=== PATIENT | female | born 1975 | race African-American/Black ===

== ENCOUNTER 2022-06-12 11:22 | Emergency (ER) | payer MEDICAID, OTHER ==
[~2022-06-12] VITALS: Ht 167.6 cm; Wt 120.4 kg
[2022-06-12 12:13] VITALS: BP 155/82
== END 2022-06-12 13:54 | disposition left against medical advice (07) ==
LOC: ER 11:22
DX: H57.89 Other specified disorders of eye and adnexa (principal); Z53.21 Procedure and treatment not carried out due to patient leaving prior to being seen by health care provider

== ENCOUNTER 2023-02-12 08:53 | Outpatient (CLI) | payer MEDICAID ==
[~2023-02-12] VITALS: Ht 170.2 cm; Wt 122.5 kg
[2023-02-12 09:15] LABS: Basophils # (auto) 0.1 10 ^3/uL (0-0.2); Basophils % (auto) 0.8 % (0.0-2.0); Eosinophils # (auto) 0.1 10 ^3/uL (0-0.8); Eosinophils % (auto) 1.4 % (0.0-7.0); Hematocrit 44.1 % (36.0-46.0); Hemoglobin 13.9 g/dL (12.2-16.2); Lymphocytes # (auto) 2.3 10 ^3/uL (0.4-5.4); Lymphocytes % (auto) 22.6 % (10.0-50.0); Mean Corpuscular Hemoglobin 22.6 pg (28.0-32.0); Mean Corpuscular Hgb Conc. 31.4 g/dL (32.0-36.0); Monocytes # (auto) 0.7 10 ^3/uL (0-1.3); Monocytes % (auto) 6.7 % (0.0-12.0); Neutrophils # (auto) 7.1 10 ^3/uL (1.6-8.6); Neutrophils % (auto) 68.5 % (37.0-80.0); Nucleated Red Blood Cells % 0.1 %; Red Blood Cells 6.13 10^6/uL (4.0-5.20); Red Cell Distribution Width 19.9 % (11.8-14.3); White Blood Cell 10.4 10^3/uL (4.4-10.8)
[2023-02-12 09:22] LABS: Urine Bacteria NONE SEEN /hpf (None Seen); Urine Blood 3+ /uL (Negative); Urine Mucus FEW (None Seen); Urine WBC 513 /hpf (0 - 5); Urine WBC Clumps PRESENT /hpf (None Seen)
[2023-02-12 09:26] LABS: Urine Specific Gravity 1.036 (1.001-1.035)
[2023-02-12 09:38] LABS: INR 0.96 (0.9-1.15); Partial Thromboplastin Time 29.1 sec (24.6-33.4)
[2023-02-12 09:47] LABS: Potassium 4.1 mmol/L (3.5-5.1)
[2023-02-12 09:56] LABS: Albumin 3.4 g/dL (3.4-5.0); BUN/Creatinine Ratio 18.2 (10.0-20.0); Bilirubin, Total 0.4 mg/dL (0.2-1.0); Calcium 9.3 mg/dL (8.5-10.1); Total Protein 7.7 g/dL (6.4-8.2)
[2023-02-12] MEDS ORDERED: PERCOT PO (11:26)
[2023-02-12] MEDS ORDERED: LISI20TA56 PO (11:26)
[2023-02-12] MEDS ORDERED: LEVE500T40 PO (11:26)
[2023-02-12] MEDS ORDERED: ALBUAER3 IN (11:27)
[2023-02-12] MEDS ORDERED: ATO40T PO (11:27)
[2023-02-12] MEDS ORDERED: FLUT110A IN (11:27)
[2023-02-12] MEDS ORDERED: OXYC325T14 PO (11:27)
[2023-02-12] MEDS ORDERED: ALBU0.084 IN (11:27)
== END 2023-02-12 09:06 | disposition home or self-care (01) ==
LOC: LAB 08:53 → EDSTATUS 02-13 14:15
PROVIDERS: ATTEND Internal Medicine Gastroenterology
DX: Z01.812 Encounter for preprocedural laboratory examination (principal); K92.2 Gastrointestinal hemorrhage, unspecified; R10.9 Unspecified abdominal pain; R11.2 Nausea with vomiting, unspecified
CPT/HCPCS: 36415; 80053; 81001; 84702; 85025; 85610; 85730

== ENCOUNTER 2025-03-21 23:46 | Emergency (ER) | payer MEDICAID ==
[~2025-03-21] VITALS: Ht 167.6 cm; Wt 106.0 kg
[~2025-03-21 23:46] MED LIST: ALBU0.084 IN; ALBUAER3 IN; ATOR-507 PO; FLUT110A IN; LEVE500T40 PO; LISI20TA56 PO; PERCOT PO
[2025-03-22 01:00] VITALS: BP 140/88; PULSE 93; RESP 20; TEMP 98.9; O2SAT 98
--- NOTE | 2025-03-22 01:04 | DVH ---
CLINICAL INDICATION: right shoulder pain TECHNIQUE: XY R SHOULDER 2+ VIEW XRAY Comparison: None FINDINGS/IMPRESSION: : There is no evidence of acute fracture or dislocation. Moderate hypertrophic acromioclavicular arthropathy. Soft tissues are unremarkable. The visualized portions of the lungs are clear.
[2025-03-22] MEDS ORDERED: IBUP-1456 PO (01:24)
--- NOTE | 2025-03-22 01:24 | ED.PDOC ---
Musculoskeletal HPI Comments 49-YEAR-OLD FEMALE PRESENTS TO ER WITH COMPLAINTS OF RIGHT SHOULDER PAIN X2 DAYS. PATIENT REPORTS SHE STARTED EXPERIENCING PAIN TO RIGHT SHOULDER TWO DAYS AGO WHEN WHEN HER CANE LUBA DOG PULLED HER WHILE SHE WAS WALKING HIM. SHE RATES HER CURRENT PAIN A 8/10 TO RIGHT SHOULDER WITHOUT RADIATION. DENIES USE OF MEDICATIONS FOR CURRENT SYMPTOMS. PATIENT PRESENTS TO ER AMBULATORY ON ARRIVAL, WITH STEADY GAIT, IN NO DISTRESS. DENIES NUMBNESS/TINGLING, SKIN CHANGES, SHORTNESS OF BREATH, CHEST PAIN, TRAUMA/FALLS OR ANY FURTHER SYMPTOMS/COMPLAINTS Chief Complaint: Upper Extremity Time Seen by MD: 23:55 Primary Care Provider: BRUNO Reviewed Notes: Nurses Notes, Medications, Allergies Allergies: Coded Allergies: NO KNOWN ALLERGIES (Unverified , 06/12/22) Home Meds Active Scripts Ibuprofen (Ibuprofen) 800 Mg Tab, 1 TAB PO TID PRN, #30 TAB 0 Refills Prov:MARY MCGOVERN 03/22/25 Reported Medications Albuterol Sulfate (VENTOLIN MDI) 90 Mcg Ih, 90 MCG IN, INH 02/12/23 Albuterol Sulfate (Albuterol Sulfate) 0.083 % Neb, 0.083 % IN, INH 02/12/23 Fluticasone Propionate (FLOVENT HFA 110Mcg INH) 110 Mcg Ih, 110 MCG IN BID, INH 02/12/23 Atorvastatin Calcium (Lipitor) 40 Mg Tab, 40 MG PO DAILY, TAB 02/12/23 Oxycodone W/ Acetaminophen (Percocet 5/325MG) 1 Tab Tb, 1 TAB PO, TAB 02/12/23 Lisinopril (Lisinopril) 20 Mg Tab, 20 MG PO DAILY, TAB 02/12/23 Levetiracetam (Keppra) 500 Mg Tab, 500 MG PO TID, TAB 02/12/23 Information Source: Patient Mode of Arrival: Ambulatory Past Medical History PAST MEDICAL HISTORY: HTN, Seizures Past Medical History (Other): BIPOLAR Surgical History: Denies all surgeries 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 Family History Family History: Unknown Social History Smoker: Non-Smoker Alcohol: Denies ETOH Use Drugs: Denies Drug Use Lives In: Home Constitutional: denies: chills, diaphoresis, fatigue, fever, malaise, sweats, weakness, others EENTM: denies: blurred vision, double vision, ear bleeding, ear discharge, ear drainage, ear pain, ear ringing, eye pain, eye redness, hearing loss, mouth pain, mouth swelling, nasal discharge, nose bleeding, nose congestion, nose pain, photophobia, tearing, throat pain, throat swelling, voice changes, others Respiratory: denies: cough, hemoptysis, orthopnea, SOB at rest, shortness of breath, SOB with excertion, stridor, wheezing, others Cardiovascular: denies: chest pain, dizzy spells, diaphoresis, Dyspnea on exertion, edema, irregular heart beat, left arm pain, lightheadedness, palpitations, PND, syncope, others Gastrointestinal: denies: abdomen distended, abdominal pain, blood streaked bowels, constipated, diarrhea, dysphagia, difficulty swallowing, hematemesis, melena, nausea, poor appetite, poor fluid intake, rectal bleeding, rectal pain, vomiting, others Genitourinary: denies: abnormal vagina bleeding, burning, dyspareunia, dysuria, flank pain, frequency, hematuria, incontinence, pain, , vagina discharge, urgency, others Neurological: denies: dizziness, fainting, headache, left sided numbness, left sided weakness, numbness, paresthesia, pre-existing deficit, right sided numbness, right sided weakness, seizure, speech problems, tingling, tremors, weakness, others Musculoskeletal: reports: others ( STATED IN HPI) Integumetry: denies: bruises, change in color, change in hair/nails, dryness, laceration, lesions, lumps, rash, wounds, others Allergic/Immunocompromised: denies: Difficulty Healing, Frequent Infections, Hives, Itching, others Hematologic/Lymphatic: denies: anemia, blood clots, easy bleeding, easy bruising, swollen glands, others Endocrine: denies: excessive hunger, excessive sweating, excessive thirst, excessive urination, flushing, intolerance to cold, intolerance to heat, unexplained weight gain, unexplained weight loss, others Psychiatric: denies: anxiety, bipolar disorder, depression, hopeless, panic disorder, schizophrenia, sleepless, suicidal, others Physical Exam General Appearance: No Apparent Distress, Obese HEENT: PERRL/EOMI Neck: Full Range of Motion, Non-Tender, Normal Respiratory: Chest Non-Tender, Lungs Clear, No Accessory Muscle Use, No Respiratory Distress, Normal Breath Sounds Cardiovascular: No Murmur, No Gallop, Regular Rate/Rhythm Breast Exam: Deferred Gastrointestinal: NOT DONE Genitalia: Deferred Pelvic: Deferred Rectal: Deferred Extremities: Normal capillary refill Musculoskeletal : Extremity Location: Shoulder (TTP TO RIGHT GH JOINT NOTED. NO DEFO RMITY/SKIN CHANGES APPRECIATED. POSITIVE APLEY SCRATCH TEST RIGHT SHOULDER. PULSES INTACT) Neurologic: Alert, No Motor Deficits, Normal Affect, Normal Mood, No Sensory Deficits Cerebellar Function: Normal Reflexes: Normal Skin: Dry, Normal Color, Warm Peripheral Pulses: 2+ Radial (R), 2+ Radial (L), 2+ Brachial (R), 2+ Brachial (L) Lymphatic: No Adenopathy Was a procedure done? Was a procedure done?: No Sedation Sedation?: No Differential Diagnosis EXT Differential Diagnosis: Fracture, Dislocation, Neurovascular injury X-Ray, Labs, Meds, VS Vital Signs Date Time Temp Pulse Resp B/P (MAP) Pulse Ox O2 Delivery O2 Flow Rate FiO2 03/22/25 01:00 98 Room Air* 0 21 03/22/25 01:00 98.9 93 20 140/88 (105) 98 98.9 03/22/25 00:32 98.9 93 20 140/88 (105) 98 98.9 PATIENT: LULA WILSONCCT: [id number]: [id number] : 1975 LOC: ER ROOM / BED: / AGE / SEX: 49 / F ADM STATUS: REG ER SERVICE [id number] ORDERING PHYSICIAN: MARY MCGOVERN PROCEDURE(s): RSHD2 - R SHOULDER 2+ VIEW XRAY REASON: right shoulder pain ORDER NUMBER(s): [id number], ACCESSION NUMBER(s): [id number] CLINICAL INDICATION: right shoulder pain TECHNIQUE: XY R SHOULDER 2+ VIEW XRAY Comparison: None FINDINGS/IMPRESSION: : There is no evidence of acute fracture or dislocation. Moderate hypertrophic acromioclavicular arthropathy. Soft tissues are unremarkable. The visualized portions of the lungs are clear. ATED BY: BARNEY VALENTINE MD DICTATED DATE/TIME: 03/22/25 0102 SIGNED BY: BARNEY VALENTINE MD SIGNED DATE/TIME: 03/22/25101 CC: RIGHT SHOULDER X-RAY REVIEWED RIGHT ARM SLING APPLIED PATIENT NEUROVASCULARLY INTACT NORCO 5/325 MG P.O. ORDERED ADVISED ON REST/NO STRENUOUS ACTIVITY, ELEVATION AND ALTERNATE ICE ON/OFF NEEDED FOR PAIN ADVISED TO FOLLOW UP WITH PCP AND ORTHOPEDICS IN 1-2 DAYS PATIENT VERBALIZED UNDERSTANDING AND AGREEABLE WITH CURRENT PLAN OF CARE ADVISED TO RETURN TO ER IMMEDIATELY IF SYMPTOMS WORSEN Images Reviewed?: Images reviewed and evaluated by me Time of 1ST Reevaluation: 01:02 Reevaluation 1ST: N/A Patient Education/Counseling: Diagnosis, Treatment, Prognosis, Need For Follow Up Family Education/Counseling: No Family Present Departure 1 Departure Time of Disposition: : Impression: Primary Impression: Right shoulder strain Qualified Codes: S46.911A - Strain of unspecified muscle, fascia and tendon at shoulder and upper arm level, right arm, initial encounter Additional Impression: Arthritis of right shoulder Disposition: 01 HOME / SELF CARE / HOMELESS Condition: Stable e-Prescriptions Ibuprofen (Ibuprofen) 800 Mg Tab 1 TAB PO TID PRN, #30 TAB 0 Refills Prov: MARY MCGOVERN 03/22/25 Discharged With: Friend Critical Care Note Critical Care Time?: No Stability Stability form required: No Heart Score Heart Score: Heart Score Response (Comments) Value History N/A 0 EKG N/A 0 Age N/A 0 Risk Factors N/A 0 Troponin N/A 0 Total 0 MARY MCGOVERN Mar 22, 2025 01:24
[2025-03-22] MEDS: HYDROcodone-ACET 5/325MG TAB PO ONE (01:36)
== END 2025-03-22 01:38 | disposition home or self-care (01) ==
LOC: ER 23:46
DX: S46.911A Strain of unspecified muscle, fascia and tendon at shoulder and upper arm level, right arm, initial encounter (principal); M19.011 Primary osteoarthritis, right shoulder; I10 Essential (primary) hypertension; Z79.899 Other long term (current) drug therapy; X58.XXXA Exposure to other specified factors, initial encounter; Y93.01 Activity, walking, marching and hiking; Y92.89 Other specified places as the place of occurrence of the external cause; Y99.8 Other external cause status
CPT/HCPCS: 29105; 73030

== ENCOUNTER 2025-03-23 18:46 | Emergency (ER) | payer MEDICAID ==
[~2025-03-23] VITALS: Ht 167.6 cm; Wt 110.0 kg
[~2025-03-23 18:46] MED LIST changes: +IBUP-1456 PO
--- NOTE | 2025-03-23 19:04 | ED.PDOC ---
History of Present Illness HPI Comments 49-year-old female who comes in with chief complaint of right shoulder pain. The patient was seen here on 03/21/2025 for a right shoulder injury. At that time the patient was then discharged. Today, the patient was picked up by law enforcement for a warrant and because the patient stated she had some right shoulder pain she was brought back for medical clearance. At this time the patient states that she does not want to be seen again. We did review the x- rays for the right shoulder that was done on 03/21 and it shows no fracture. Time Seen by MD: 18:59 Primary Care Provider: BRUNO Reviewed Notes: Nurses Notes, Medications, Allergies (No allergies to medications) Allergies: Coded Allergies: NO KNOWN ALLERGIES (Unverified , 06/12/22) Home Meds Active Scripts Ibuprofen (Ibuprofen) 800 Mg Tab, 1 TAB PO TID PRN, #30 TAB 0 Refills Prov:MARY MCGOVERN 03/22/25 Reported Medications Albuterol Sulfate (VENTOLIN MDI) 90 Mcg Ih, 90 MCG IN, INH 02/12/23 Albuterol Sulfate (Albuterol Sulfate) 0.083 % Neb, 0.083 % IN, INH 02/12/23 Fluticasone Propionate (FLOVENT HFA 110Mcg INH) 110 Mcg Ih, 110 MCG IN BID, INH 02/12/23 Atorvastatin Calcium (Lipitor) 40 Mg Tab, 40 MG PO DAILY, TAB 02/12/23 Oxycodone W/ Acetaminophen (Percocet 5/325MG) 1 Tab Tb, 1 TAB PO, TAB 02/12/23 Lisinopril (Lisinopril) 20 Mg Tab, 20 MG PO DAILY, TAB 02/12/23 Levetiracetam (Keppra) 500 Mg Tab, 500 MG PO TID, TAB 02/12/23 Information Source: Patient Mode of Arrival: Ambulatory Severity: Moderate Duration: Since onset Past Medical History PAST MEDICAL HISTORY: HTN, Seizures Surgical History: Denies all surgeries 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 Family History Family History: Unknown Social History Smoker: Non-Smoker Alcohol: Denies ETOH Use Drugs: Denies Drug Use Lives In: Home Physical Exam General Appearance: No Apparent Distress, Obese HEENT: Normal ENT Inspection, Pharynx Normal, TMs Normal Neck: Full Range of Motion, Non-Tender, Normal, Normal Inspection Respiratory: Chest Non-Tender, Lungs Clear, No Accessory Muscle Use, No Respiratory Distress, Normal Breath Sounds Cardiovascular: No Edema, No JVD, No Murmur, No Gallop, Normal Peripheral Pulses, Regular Rate/Rhythm Breast Exam: Deferred Gastrointestinal: No Organomegaly, Non Tender, No Pulsatile Mass, Normal Bowel Sounds, Soft Genitalia: Deferred Pelvic: Deferred Rectal: Deferred Extremities: No calf tenderness, Normal capillary refill, No pedal edema Musculoskeletal : Location: Right Extremity Location: Shoulder (Mild tenderness) Apperance: Normal Neurologic: Alert, breaker oiler II-XII nml as Tested, No Motor Deficits, Normal Affect, Normal Mood, No Sensory Deficits Cerebellar Function: Normal Reflexes: Normal Skin: Dry, Normal Color, Warm Lymphatic: No Adenopathy Was a procedure done? Was a procedure done?: No Differential Dx Considerations may include: Shoulder strain X-Ray, Labs, Meds, VS At this time, the patient is being discharged with law enforcement The patient has been medically cleared to be booked. The patient is discharged at this time Time of 1ST Reevaluation: 19:08 Reevaluation 1ST: Unchanged Patient Education/Counseling: Diagnosis, Treatment, Prognosis, Need For Follow Up Family Education/Counseling: No Family Present Departure 1 Departure Time of Disposition: 19:08 Impression: Primary Impression: Right shoulder strain Qualified Codes: S46.911D - Strain of unspecified muscle, fascia and tendon at shoulder and upper arm level, right arm, subsequent encounter Disposition: 01 HOME / SELF CARE / HOMELESS Condition: Fair Discharged With: Self Critical Care Note Critical Care Time?: No Stability Stability form required: No Heart Score Heart Score: Heart Score Response (Comments) Value History N/A 0 EKG N/A 0 Age N/A 0 Risk Factors N/A 0 Troponin N/A 0 Total 0 TACOS DUNHAM MD Mar 23, 2025 19:04
[2025-03-23 19:07] VITALS: BP 151/96; PULSE 84; RESP 18; TEMP 98.2; O2SAT 97
== END 2025-03-23 19:20 | disposition home or self-care (01) ==
LOC: ER 18:53
DX: S46.811A Strain of other muscles, fascia and tendons at shoulder and upper arm level, right arm, initial encounter (principal); I10 Essential (primary) hypertension; Z79.899 Other long term (current) drug therapy; X58.XXXA Exposure to other specified factors, initial encounter; Y93.89 Activity, other specified; Y92.89 Other specified places as the place of occurrence of the external cause; Y99.8 Other external cause status